=== PATIENT | male | born 1990 | race Caucasian/White ===

== ENCOUNTER 2018-04-13 23:04 | Emergency (ER) | payer MEDICARE ==
[2018-04-14 00:21] LABS: ABS Basophils 0.1 10^3/ul (0-0.2); ABS Eosinophils 0.3 10^3/ul (0-0.6); ABS Lymphocytes 3.2 10^3/ul (1.0-4.8); ABS Monocytes 0.7 10^3/ul (0-0.8); ABS Nucleated RBC 0 10^3/ul; Eosinophil % 3.6 %; Hematocrit 40 % (42-52); Hemoglobin 13.7 g/dl (14.0-18.0); Lymphocyte % 38.4 %; Mean Corpuscular HGB Conc 34 g/dl (31-36); Mean Corpuscular Hemoglobin 30 pg (27-31); Mean Corpuscular Volume 87 fL (80-94); Mean Platelet Volume 8.4 fL (7.4-10.4); Nucleated Red Blood Cells % 0.1; Platelet Count 207 10^3/ul (150-450); Red Blood Count 4.59 10^6/ul (4.00-5.40); Red Cell Distribution Width 15 % (10.5-15); White Blood Count 8.3 10^3/ul (3.5-10.8)
[2018-04-14 00:38] LABS: EGFR Non-African American 111.1 (>60)
[2018-04-14] MEDS ORDERED: Acetaminophen TAB* 325 MG PO ONE (00:43)
[2018-04-14 00:44] LABS: INR 0.95 (0.77-1.02)
[2018-04-14] MEDS ORDERED: Ibuprofen TAB* 400 MG PO ONE (01:08)
--- NOTE | 2018-04-14 01:08 | ED ---
HPI Chest Pain - HPI Summary HPI Summary: Patient complains of sternal chest pain radiating to left side chest, numbness and tingling radiating down right arm, and intermittent SOB 3 days. CP described as ache, constant, worse with use of upper extremities, not worse with exertion. 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 Denies fever, cough, sore throat, N/V/D, abdominal pain, change in urine, change in BM, history of blood clots, long travel, recent trauma. History of surgery for cholecystectomy and appendectomy a weeks ago. Positive smoker. Occasional use of energy drinks. Denies recreational stimulants. Medical history is none. - History of Current Complaint Chief Complaint: EDChestPainROMI Hx Obtained From: Patient Onset/Duration: Started Days Ago Timing: Constant Initial Severity: Severe Current Severity: Severe Pain Intensity: 9 Pain Scale Used: 0-10 Numeric Chest Pain Location: Mid Sternal, Left Anterior Chest Pain Radiates: Yes Chest Pain Radiates To:: Arm Character: Dull/Aching Aggravating Factor(s): Movement Alleviating Factor(s): Rest Associated Signs and Symptoms: Positive: Chest Pain, Numbness, Tingling, Shortness of Breath - Allergy/Home Medications Allergies/Adverse Reactions: Allergies Allergy/AdvReac Type Severity Reaction Status Date / Time No Known Allergies Allergy Verified 04/13/18 23:08 Home Medications: Home Medications NK [No Home Medications Reported] 04/14/18 [History Confirmed 04/14/18] PMH/Surg Hx/FS Hx/Imm Hx Endocrine/Hematology History: Denies: Hx Anticoagulant Therapy Cardiovascular History: Denies: Hx Cardiac Arrest History: Denies: Hx Dialysis Neurological History: Denies: Hx CVA Psychiatric History: Denies: Hx Autism Infectious Disease History: No Infectious Disease History: Denies: Traveled Outside the [place] in Last 30 Days - Family History Known Family History: Positive: Unknown - Social History Occupation: Employed Part-time Alcohol Use: Occasionally Alcohol Amount: Beer, weekly Substance Use Type: Reports: None Smoking Status (MU): Never Smoked Tobacco Review of Systems Constitutional: Negative Eyes: Negative ENT: Negative Positive: Chest Pain Positive: Shortness Of Breath Gastrointestinal: Negative Genitourinary: Negative Musculoskeletal: Negative Skin: Negative Positive: Paresthesia Psychological: Normal All Other Systems Reviewed And Are Negative: Yes Physical Exam - Summary Physical Exam Summary: Chest pain is very reproducible with pressure to mid chest and left chest.. Right arm pain with palpation and movement of right arm. Lung sounds clear to auscultation bilaterally. Regular rate and rhythm. Triage Information Reviewed: Yes Vital Signs On Initial Exam: Initial Vitals Temp Pulse Resp BP Pulse Ox 98.5 F 70 16 137/91 97 04/13/18 23:07 04/13/18 23:07 04/13/18 23:07 04/13/18 23:07 04/13/18 23:07 Vital Signs Reviewed: Yes Appearance: Positive: Well-Appearing Skin: Positive: Warm Head/Face: Positive: Normal Head/Face Inspection Eyes: Positive: Normal Neck: Positive: Supple Respiratory/Lung Sounds: Positive: Clear to Auscultation Cardiovascular: Positive: Normal Abdomen Description: Positive: Nontender Musculoskeletal: Positive: Normal Neurological: Positive: Normal Psychiatric: Positive: Normal AVPU Assessment: Alert - Teja Coma Scale Best Eye Response: 4 - Spontaneous Best Motor Response: 6 - Obeys Commands Best Verbal Response: 5 - Oriented Coma Scale Total: 15 Diagnostics - Vital Signs Vital Signs Temp Pulse Resp BP Pulse Ox 04/13/18 23:07 98.5 F 70 16 137/91 97 - Laboratory Lab Results: Lab Results 04/14/18 04/14/18 04/14/18 Range/Units 00:10 00:10 00:14 WBC 8.3 (3.5-10.8) 10^3/ul RBC 4.59 (4.00-5.40) 10^6/ul Hgb 13.7 L (14.0-18.0) g/dl Hct 40 L (42-52) % MCV 87 (80-94) fL MCH 30 (27-31) pg MCHC 34 (31-36) g/dl RDW 15 (10.5-15) % Plt Count 207 (150-450) 10^3/ul MPV 8.4 (7.4-10.4) fL Neut % (Auto) 49.0 % Lymph % (Auto) 38.4 % Hubbard % (Auto) 8.1 % Eos % (Auto) 3.6 % Baso % (Auto) 0.9 % Absolute Neuts (auto) 4.0 (1.5-7.7) 10^3/ul Absolute Lymphs (auto) 3.2 (1.0-4.8) 10^3/ul Absolute Monos (auto) 0.7 (0-0.8) 10^3/ul Absolute Eos (auto) 0.3 (0-0.6) 10^3/ul Absolute Basos (auto) 0.1 (0-0.2) 10^3/ul Absolute Nucleated RBC 0 10^3/ul Nucleated RBC % 0.1 INR (Anticoag Therapy) 0.95 (0.77-1.02) D-Dimer, Quantitative < 200 (Less Than 230) ng/mL Sodium 141 (135-145) mmol/L Potassium 4.1 (3.5-5.0) mmol/L Chloride 107 (101-111) mmol/L Carbon Dioxide 29 (22-32) mmol/L Anion Gap 5 (2-11) mmol/L BUN 11 (6-24) mg/dL Creatinine 0.82 (0.67-1.17) mg/dL Est GFR ( Amer) 134.4 (>60) Est GFR (Non-Af Amer) 111.1 (>60) BUN/Creatinine Ratio 13.4 (8-20) Glucose 103 H (70-100) mg/dL Calcium 9.6 (8.6-10.3) mg/dL Total Bilirubin 0.40 (0.2-1.0) mg/dL AST 30 (13-39) U/L ALT 49 (7-52) U/L Alkaline Phosphatase 59 (34-104) U/L Troponin I 0.00 (<0.04) ng/mL C-Reactive Protein 4.26 (<8.01) mg/L Total Protein 7.3 (6.4-8.9) g/dL Albumin 4.3 (3.2-5.2) g/dL Globulin 3.0 (2-4) g/dL Albumin/Globulin Ratio 1.4 (1-3) Result Diagrams: 04/14/18 00:10 04/14/18 00:10 Lab Statement: Any lab studies that have been ordered have been reviewed, and results considered in the medical decision making process. Chest Pain Course/Dx - Course Course Of Treatment: Patient complains of sternal chest pain radiating to left side chest, numbness and tingling radiating down right arm, and intermittent SOB 3 days. CP described as ache, constant, worse with use of upper extremities, not worse with exertion. 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 Denies fever, cough, sore throat, N/V/D, abdominal pain, change in urine, change in BM, history of blood clots, long travel, recent trauma. History of surgery for cholecystectomy and appendectomy a weeks ago. Positive smoker. Occasional use of energy drinks. Denies recreational stimulants. Medical history is none. Physical exam: Chest pain is very reproducible with pressure to mid chest and left chest.. Right arm pain with palpation and movement of right arm. Lung sounds clear to auscultation bilaterally. Regular rate and rhythm. Patient was heavy objects at work, but has been out of work for 6 weeks to to recovery for cholecystectomy and appendectomy. Patient has returned to work lifting same objects and is noticing some chest pain, right arm pain and shortness of breath. Vital signs are within normal limits and stable. Labs are unremarkable. D-dimer negative. Chest x-ray unremarkable. EKG unremarkable. Patient's symptoms likely due to over exertion after 6 week away from work. - Diagnoses Provider Diagnoses: Atypical chest pain, Musculoskeletal pain Discharge - Sign-Out/Discharge Documenting (check all that apply): Patient Departure - Discharge Plan Condition: Stable Disposition: HOME Patient Education Materials: Musculoskeletal Pain (ED) Referrals: Devon Zaragoza PA [Primary Care Provider] - Additional Instructions: Take ibuprofen 800 mg 3 times a day for 4 days. Return to the ED for any new or worsening symptoms. - Billing Disposition and Condition Condition: STABLE Disposition: Home
[2018-04-14 01:21] VITALS: BP 138/71
== END 2018-04-14 01:20 | disposition home or self-care (01) ==
LOC: ED 23:04
DX: R07.89 Other chest pain (principal); R06.02 Shortness of breath; R20.0 Anesthesia of skin; R20.2 Paresthesia of skin
CPT/HCPCS: 36415; 71046; 80053; 84484; 85025; 85379; 85610; 86140; 93005; 99283; A9270-GY